=== PATIENT | male | born 1995 | race Caucasian/White ===

== ENCOUNTER 2019-12-01 18:03 | Emergency (ER) | payer OTHER, SELFPAY ==
[2019-12-01 19:43] VITALS: BP 149/93; PULSE 79; RESP 18; TEMP 36.7; O2SAT 100; BMI 31.2
[2019-12-01 20:41] VITALS: BP 146/88; PULSE 78; RESP 18; TEMP 36.6
--- NOTE | 2019-12-01 21:02 | ED_ITS ---
HPI - Extremity Injury (Lower) General Chief Complaint: Extremity Injury, Lower <Harvinder Fabian NP - Last Filed: 12/01/19 21:14> Stated Complaint: TOE SWELLING <Harvinder Fabian NP - Last Filed: 12/01/19 21:14> Time Seen by Provider: 12/01/19 21:01 <Harvinder Fabian NP - Last Filed: 12/01/19 21:14> Source: patient <Harvinder Fabian NP - Last Filed: 12/01/19 21:14> Mode of arrival: ambulatory <Harvinder Fabian NP - Last Filed: 12/01/19 21:14> Limitations: no limitations <Harvinder Fabian NP - Last Filed: 12/01/19 21:14> History of Present Illness HPI Narrative: 24-year-old male otherwise healthy presenting with complaint of left great toe pain. States a week ago he stubbed it and dropped a box on it head injury for which he went to urgent care for head negative x-rays but slowly the area became swollen and the nail became bluish. He otherwise denies any redness. No open area. No other injury. <Harvinder Fabian NP - Last Filed: 12/01/19 21:14> Onset (ago): day(s) <Harvinder Fabian NP - Last Filed: 12/01/19 21:14> Injury: Left: toes (great toe ) <Harvinder Fabian NP - Last Filed: 12/01/19 21:14> Type of Injury: blunt <Harvinder Fabian NP - Last Filed: 12/01/19 21:14> Place: home <Harvinder Fabian NP - Last Filed: 12/01/19 21:14> Severity: moderate <Harvinder Fabian NP - Last Filed: 12/01/19 21:14> Severity scale (1-10): 6 <Harvinder Fabian NP - Last Filed: 12/01/19 21:14> Relieving factors: rest <Harvinder Fabian NP - Last Filed: 12/01/19 21:14> Exacerbating factors: weight bearing <Harvinder Fabian NP - Last Filed: 12/01/19 21:14> Context: direct blow <Harvinder Fabian NP - Last Filed: 12/01/19 21:14> Other symptoms: none <Harvinder Fabian NP - Last Filed: 12/01/19 21:14> Related Data Allergies/Adverse Reactions: Allergies Allergy/AdvReac Type Severity Reaction Status Date / Time No Known Allergies Allergy Verified 12/01/19 21:01 <Harvinder Fabian NP - Last Filed: 12/01/19 21:14> Review of Systems Review of Systems: Yes all other systems are reviewed and are negative <Harvinder Fabian NP - Last Filed: 12/01/19 21:14> [facility] Past Medical History Attestation statement: The following information was validated with the patient. <Harvinder Fabian NP - Last Filed: 12/01/19 21:14> Medical History: Medical History (Updated 12/01/19 @ 21:04 by Harvinder Fabian NP) No known health problems <Harvinder Fabian NP - Last Filed: 12/01/19 21:14> Social History Social History: Social History Advance Directives: No Advance Directives Information Provided: No <Harvinder Fabian NP - Last Filed: 12/01/19 21:14> Physical Exam Vital Signs and I&O and Narrative: Vital Signs and I&O: Vital Signs Temp 98 F 12/01/19 20:41 Pulse 78 12/01/19 20:41 Resp 18 12/01/19 20:41 BP 146/88 H 12/01/19 20:41 Pulse Ox 100 12/01/19 19:43 Intake & Output 12/01/19 12/01/19 12/02/19 06:59 18:59 06:59 Weight 113.398 kg Body Mass Index 31.2 <Harvinder Fabian NP - Last Filed: 12/01/19 21:14> Vital Signs and I&O: Vital Signs Temp 98 F 12/01/19 20:41 Pulse 78 12/01/19 20:41 Resp 18 12/01/19 20:41 BP 146/88 H 12/01/19 20:41 Pulse Ox 100 12/01/19 19:43 Intake & Output 12/01/19 12/01/19 12/02/19 06:59 18:59 06:59 Weight 113.398 kg Body Mass Index 31.2 <DO Adal Russo Last Filed: 12/01/19 23:04> Const: General: cooperative and healthy appearing; No acute distress or intoxicated appearing <Harvindercleo Fabian NP - Last Filed: 12/01/19 21:14> Nutritional Appearance: average body habitus <Harvindercleo Fabian NP - Last Filed: 12/01/19 21:14> Orientation/consciousness: patient oriented x3 <[facility] LEENA Fabian - Last Filed: 12/01/19 21:14> HENMT: Head: Yes normal to inspection <[facility] LEENA Fabian - Last Filed: 12/01/19 21:14> Ears: hearing grossly normal bilaterally <[facility] LEENA Fabian - Last Filed: 12/01/19 21:14> Chest: Chest palpation & inspection: normal inspection of the chest <[facility] LEENA Fabian - Last Filed: 12/01/19 21:14> Resp: Effort & Inspection: normal respiratory effort <[facility] LEENA Fabian - Last Filed: 12/01/19 21:14> Cardio: Jugular venous distension: no JVD <[facility] LEENA Fabian - Last Filed: 12/01/19 21:14> Skin: General skin exam: no rashes or lesions noted <Harvindercleo Fabian NP - Last Filed: 12/01/19 21:14> Neuro: General: patient oriented x3 <Harvindercleo Fabian NP - Last Filed: 12/01/19 21:14> Extrem: General: Yes normal to inspection <Harvindercleo Fabian NP - Last Filed: 12/01/19 21:14> Course Course Course Narrative: Given ortho shoe for comfort <Harvindercleo Fabian NP - Last Filed: 12/01/19 21:14> Procedures Nail Trephination Location (toes): first digit <Harvinder Fabian NP - Last Filed: 12/01/19 21:14> Sterile prep: betadine and chlorhexidine <Harvindercleo Fabian NP - Last Filed: 12/01/19 21:14> Method of drainage: needle <Harvindercleo Fabian NP - Last Filed: 12/01/19 21:14> Procedure successful: Yes <Harvinder Fabian NP - Last Filed: 12/01/19 21:14> Patient tolerated procedure: No Complications <Harvinder Fabian NP - Last Filed: 12/01/19 21:14> Discharge Plan Discharge Clinical Impression: Hematoma, subungual, great toe, left Qualifiers: Encounter type: initial encounter Qualified Code(s): S90.212A - Contusion of left great toe with damage to nail, initial encounter <Harvinder Fabian NP - Last Filed: 12/01/19 21:14> Patient Disposition: Home, Self-Care <Harvinder Fabian NP - Last Filed: 12/01/19 21:14> Instructions: Subungual Hematoma (ED) <Harvinder Fabian NP - Last Filed: 12/01/19 21:14> Interventions: ED Discharge Assessment Last Done: 12/01/19 21:17 <Harvinder Fabian NP - Last Filed: 12/01/19 21:14> Discharge Date/Time: 12/01/19 21:21 <Harvinder Fabian NP - Last Filed: 12/01/19 21:14>
[2019-12-01] MEDS: Ibuprofen 800 MG TABLET PO (21:08)
[2019-12-01] MEDS: oxyCODONE HCl Immed Release 5 MG TABLET PO (21:08)
== END 2019-12-01 21:21 | disposition home or self-care (01) ==
PROVIDERS: Emergency Provider Emergency Medicine; PCP Internal Medicine
DX: S90.212A Contusion of left great toe with damage to nail, initial encounter (principal); W20.8XXA Other cause of strike by thrown, projected or falling object, initial encounter; Y93.9 Activity, unspecified; Y92.019 Unspecified place in single-family (private) house as the place of occurrence of the external cause; Y99.9 Unspecified external cause status
CPT/HCPCS: 11740; 99283; 99284